=== PATIENT | female | born 1960 | race Two or more races ===

== ENCOUNTER 2022-11-19 17:42 | Emergency (ER) | payer OTHER ==
[~2022-11-19] VITALS: Ht 167.6 cm; Wt 90.7 kg
== END 2022-11-19 19:49 | disposition home or self-care (01) ==
LOC: ER 17:42
PROVIDERS: General Practice
DX: F18.1 Inhalant abuse (principal); R11.0 Nausea; I10 Essential (primary) hypertension; R42 Dizziness and giddiness